=== PATIENT | female | born 1975 | race Caucasian/White ===

== ENCOUNTER 2020-01-28 12:03 | Emergency (ER) | payer OTHER, SELFPAY ==
--- NOTE | ~2020-01-28 | CT_ITS ---
EXAMINATION: CTA chest PE protocol DATE: 01/28/2020 15:56 CDT INDICATION: Chest pain TECHNIQUE: Computed tomographic angiography (CTA) of the chest was performed with 100 mL Omnipaque-35 0 intravenous contrast. The dose-length product was 303.25 mGy-cm. Maximum intensity projection 3D-re constructions of the aorta and other arteries were constructed by the technologist on a separate work station. Automated exposure control and iterative reconstruction technique were employed. COMPARISON: Chest x-ray dated 01/28/2020 FINDINGS: Study is technically adequate without evidence for pulmonary embolism. Size is normal. No s ignificant pleural or pericardial effusion. There is no thoracic lymphadenopathy. There is dependent atelectasis bilaterally. The upper abdomen is unremarkable. No focal airspace consolidation. No suspi cious pulmonary nodules or masses. There is an acute left fourth rib fracture there is a chronic left sixth rib fracture. IMPRESSION: 1. No evidence for pulmonary embolism. 2: Acute left fourth rib fracture. 3: Bibasilar dependent atelectasis. Reviewed, dictated and finalized at location A.
--- NOTE | ~2020-01-28 | XR_ITS ---
EXAMINATION: XR chest 2V 01/28/2020 12:48 INDICATION: Dyspnea and cough. PROCEDURE: PA and lateral views of the chest COMPARISON: 07/01/2014 FINDINGS: The lungs are clear. The cardiomediastinal silhouette is within normal limits. There are no pleural effusions. There is no pneumothorax suspected. IMPRESSION: 1: NO ACUTE CARDIOPULMONARY DISEASE. Reviewed, dictated and finalized at location A.
[2020-01-28 12:05] VITALS: BP 135/58; PULSE 125; RESP 30; TEMP 36.1; O2SAT 100
--- NOTE | 2020-01-28 12:10 | ECG_ITS ---
Measurements Intervals [place] Rate: 114 P: 23 DE: 138 QRS: 35 QRSD: 84 T: 9 QT: 312 QTc: 431 Interpretive Statements SINUS TACHYCARDIA BORDERLINE ST-T WAVE ABNORMALITY- ANT/INF LEADS BASELINE WANDER- V1, V3-V6 ABNORMAL ECG Electronically Signed On 01-28-2020 12:47:53 CDT by Alvaro Ortiz D.O.
[2020-01-28 12:57] LABS: Basophils Absolute Auto 0.1 K/mm3 (0.0-0.1); Basophils Percent Auto 0.4 % (0.2-1.2); Eosinophils Percent Auto 0.2 % (0-4.4); Hematocrit 40.9 % (37.0-47.0); Hemoglobin 13.4 g/dL (12.0-15.0); Immature Granulocyte Percent A 1.4 % (0-0.5); Lymphocytes Absolute Auto 4.19 K/mm3 (0.9-3.2); Lymphocytes Percent Auto 30.1 % (18.3-44.2); Mean Corpuscular HGB Conc 32.8 g/dl (32-36); Mean Corpuscular Hemoglobin 30.4 pg (26-34); Mean Corpuscular Volume 92.7 fl (80-100); Mean Platelet Volume 8.9 fl (7.4-10.4); Monocytes Absolute Auto 0.8 K/mm3 (0.1-0.6); Monocytes Percent Auto 5.8 % (2.6-8.5); Neutrophils Absolute Auto 8.7 K/mm3 (1.3-6.7); Neutrophils Percent Auto 62.1 % (45.5-73.1); Platelet Count Result 411 k/mm3 (150-375); Red Blood Count 4.41 M/mm3 (4.2-5.4); Red Cell Distribution Width 14.3 % (11.5-14.5); White Blood Count 13.9 K/mm3 (4.5-10.0)
[2020-01-28] MEDS: LORAZEPAM INJ 2 MG/ML VIAL 1 MG IV PUSH (13:10)
[2020-01-28 13:12] LABS: Blood Urea Nitrogen 11 mg/dL (7-17); Calcium 8.8 mg/dL (8.4-10.2); Carbon Dioxide 24 mmol/L (22-30); Chloride 105 mmol/L (98-107); Estimated CRCL calculation 72 ml/min; Estimated Glomerular Filt Rate > 60; Glucose 153 mg/dL (65-105); Potassium 2.7 mmol/L (3.4-5.0); Sodium 137 mmol/L (137-145)
--- NOTE | 2020-01-28 13:24 | ED.SOB ---
HPI - SOB/Dyspnea General Chief Complaint: Shortness of Breath/Dyspnea Stated Complaint: SOB, LEFT SIDE PAIN Time Seen by Provider: 01/28/20 12:26 Source: patient Mode of arrival: ambulatory Limitations: no limitations History of Present Illness HPI Narrative: Patient is a 44-year-old female who presents to emergency department for evaluation of nonproductive cough is been present for 1 week saw her primary care for it had a steroid shot in office and is currently on antibiotics and has been taking oral steroids and using an albuterol inhaler patient notes she continues to have anxiety and shortness of breath with some pain under the left breast that is been there for 1 week is constant and worse with breathing and coughing. Patient with history of tobacco abuse. Patient denies sick contacts. Patient on arrival notes feeling anxious and is hyperventilating Related Data Home Medications Medication Instructions Recorded Confirmed alprazolam 2 mg PO Q6-8H PRN 01/28/20 amitriptyline 25 mg PO DAILY 01/28/20 01/28/20 buspirone 7.5 mg PO DAILY 01/28/20 01/28/20 haloperidol 5 mg PO DAILY 01/28/20 01/28/20 Allergies Allergy/AdvReac Type Severity Reaction Status Date / Time ibuprofen Allergy Unknown Unverified 07/01/14 08:13 pineapple Allergy Unknown THROAT Unverified 07/01/14 08:12 SWELLING, HIVES Review of Systems Review of Systems: All systems reviewed & are unremarkable except as noted in HPI and below PMFSH Past Medical History Medical History (Updated 01/28/20 @ 16:50 by Gurjit Brooks PA-C) Anxiety Social History Social History (Updated 01/28/20 @ 13:25 by Gurjit Brooks PA-C) Smoking status: Current every day smoker Gender identity (if verbalized by the patient): Female Exam Narrative: Exam Narrative: GENERAL: Well-appearing, well-nourished, and in no acute distress. HEAD: Normocephalic, atraumatic. EYES: PERRLA and EOMI. ENT: Nares clear, no rhinorrhea or epistaxis. Mucous membranes moist. Oropharynx without tonsillar hypertrophy exudate or other lesions. Bilateral TMs pearly marx nonbulging NECK: Supple. No adenopathy or masses. CHEST: Clear to auscultation. No respiratory distress. No wheezes rales or rhonchi HEART: Regular rate and rhythm. No murmur heard. Normal peripheral pulses. ABDOMEN: Soft, nontender, nondistended EXTREMITIES: Normal range of motion. No edema. SKIN: Warm, dry, no rash. NEURO: No focal deficits. Alert and oriented x3. Cranial nerves II through XII grossly intact PSYCH: Normal mood and affect. Course Vital Signs Vital signs: Vital Signs Temperature 97.0 F L 01/28/20 12:05 Pulse Rate 125 H 01/28/20 12:05 Respiratory Rate 30 H 01/28/20 12:05 Blood Pressure 135/58 L 01/28/20 12:05 Pulse Oximetry 100 01/28/20 12:05 Temperature 97.0 F L 01/28/20 12:05 Pulse Rate 125 H 01/28/20 12:05 Respiratory Rate 30 H 01/28/20 12:05 Blood Pressure 135/58 L 01/28/20 12:05 Pulse Oximetry 100 01/28/20 12:05 MDM - SOB/Dyspnea MDM Narrative Medical decision making narrative: Patient in the room at this time with likely bronchitis-like symptoms afebrile nontoxic-appearing felt appropriate for outpatient reevaluation CTA showed left rib fracture likely the etiology of the patient's pain. Patient is afebrile nontoxic-appearing no distress with normalizing vital signs with a heart rate of 95 satting 100% on room air Lab Data Result diagrams: 01/28/20 12:50 01/28/20 12:50 Labs: Lab Results 01/28/20 01/28/20 Range/Units 12:50 12:50 WBC 13.9 H (4.5-10.0) K/mm3 RBC 4.41 (4.2-5.4) M/mm3 Hgb 13.4 (12.0-15.0) g/dL Hct 40.9 (37.0-47.0) % MCV 92.7 (80-100) fl MCH 30.4 (26-34) pg MCHC 32.8 (32-36) g/dl RDW 14.3 (11.5-14.5) % Plt Count 411 H (150-375) k/mm3 MPV 8.9 (7.4-10.4) fl Immature Gran % (Auto) 1.4 H (0-0.5) % Neut % (Auto) 62.1 (45.5-73.1) % Lymph % (Auto)
[2020-01-28 13:29] LABS: Alveolar/Arterial O2 Gradient 39.2 mmHg; Base Excess ABG -1.6 mEq/l (+/-2.0); Carboxyhemoglobin 1.9 % THb (0-2.0); Fractional Inspired Oxygen 21 %; Methemoglobin ABG 0.3 %THb (0-1.5); Oxygen Content ABG 17.9 %vol (16.0-22.0); Oxygen Saturation ABG 95.9 % (95.0-100.0); Oxyhemoglobin 93.3 % THb (90.0-100.0); PCO2 ABG 29.9 mmHg (35.0-45.0); PO2 ABG 74.7 mmHg (80.0-100.0); PO2 FiO2 Ratio Arterial Blood 3.56 %; Reduced Hemoglobin 4.5 %THb (0-5.0); Total Hemoglobin 13.6 g/dL (12.0-18.0); pH ABG 7.465 (7.350-7.450)
--- NOTE | 2020-01-28 13:35 | PC.NURSE ---
CALLED LAB TO ADD ON TROP BASELINE AND PHOS MG THEN TERESA THE LACTIC THAT WAS ORDERED AND SENT IT TO LAB
[2020-01-28 14:03] LABS: Prothrombin Time 12.4 Seconds (11.1-14.7)
[2020-01-28 14:04] LABS: Partial Thromboplastin Time 21.5 SECONDS (22.3-36.8)
[2020-01-28 14:04] LABS: Device ROOM AIR; Modified Allen's Test Pass; Site Drawn RIGHT RADIAL
[2020-01-28 14:08] LABS: Lactic Acid Reflex 1.9 mmol/L (0.7-2.1)
[2020-01-28 14:09] LABS: D Dimer 0.23 ug/mL (<0.48)
[2020-01-28 14:30] LABS: Magnesium 2.1 mg/dL (1.6-2.3); Phosphorus 2.8 mg/dL (2.5-4.5)
[2020-01-28 14:41] LABS: Troponin I < 0.012 ng/mL (0.000-0.034)
[2020-01-28] MEDS: POTASSIUM CHLORIDE 20 MEQ PACKET (FOR LIQUID) 40 MEQ PO (14:53)
[2020-01-28 16:27] VITALS: BP 138/72; PULSE 96; RESP 20
== END 2020-01-28 17:00 | disposition home or self-care (01) ==
PROVIDERS: Emergency Medicine Emergency Medical Services; Emergency Provider Emergency Medicine
DX: J40 Bronchitis, not specified as acute or chronic (principal); R00.0 Tachycardia, unspecified; F32.9 Major depressive disorder, single episode, unspecified; F17.210 Nicotine dependence, cigarettes, uncomplicated
CPT/HCPCS: 36415; 36600; 71046; 71275; 80048; 81025; 82375; 82805; 83050; 83605; 83735; 84100; 84484; 85025; 85380; 85610; 85730; 93005; 96365; 96375; 99284; A9270; J0131; J2060; Q9967

== ENCOUNTER 2022-07-23 09:12 | Emergency (ER) | payer OTHER, SELFPAY ==
[2022-07-23] VITALS (67 sets, daily range): BP systolic 135–170; BP diastolic 74–120; PULSE 88–132; RESP 10–20; TEMP 36.6; O2SAT 10–100
--- NOTE | ~2022-07-23 | XR_ITS ---
EXAMINATION: XR wrist RT 2V DATE: 07/23/2022 12:22 INDICATION: Postreduction right wrist fracture. TECHNIQUE: Posteroanterior, ulnar deviation, oblique, and lateral views of the right wrist were obtai pablo. COMPARISON: 07/23/2022 at 10:04 AM FINDINGS: Successful reduction to a reasonable approximation of anatomic alignment of a transverse extra articu lar fracture of the distal right radial metaphysis. The minimal displacement of the ulnar styloid fra cture line has also been reduced, now essentially nondisplaced. No other fractures identified. Joint spaces are normal. Fiberglas splinting material along the volar aspect of the right wrist and forearm . IMPRESSION: 1. Successful reduction to near-anatomic alignment and splinting of an extra articular fracture of th e distal right radius and fracture at the base of the ulnar styloid process. Reviewed, dictated and finalized at location A. E TESTER IMPRESSION: 1. Successful reduction to near-anatomic alignment and splinting of an extra ar ticular fracture of the distal right radius and fracture at the base of the uln ar styloid process.
--- NOTE | ~2022-07-23 | XR_ITS ---
EXAMINATION: XR chest 2V DATE: 07/23/2022 10:16 INDICATION: Lightheadedness. TECHNIQUE: frontal and lateral views of the chest were obtained. COMPARISON: Chest radiograph and CT dated 01/28/2020 FINDINGS: The lungs remain clear with no focal airspace opacities, pulmonary edema, pleural effusion or pneumot horax. The cardiomediastinal silhouette is normal. Visualized bones and soft tissues are unremarkable . IMPRESSION: 1. No acute cardiopulmonary disease. Reviewed, dictated and finalized at location A. NT SERVICES COORDINATOR
--- NOTE | ~2022-07-23 | XR_ITS ---
EXAMINATION: XR wrist RT min 3V DATE: 07/23/2022 10:17 INDICATION: Right wrist pain post fall down steps TECHNIQUE: Posteroanterior, oblique and lateral views of the right wrist were obtained. COMPARISON: none FINDINGS: Intra-articular fracture extending obliquely across the distal right radial metaphysis with 3 mm ante rior displacement and significant volar angulation resulting in 50 to 5 degrees volar tilt of the dis marlo articular surface. 2 mm anterior displacement of an oblique fracture at the base of the ulnar sty loid process. No other fractures identified. Normal alignment and joint spaces in the visualized port ion of the right hand. Soft tissue swelling about the distal forearm. IMPRESSION: 1. Volar displacement and significant volar angulation of an extra-articular fracture of the distal r ight radial metaphysis. 2. Mild forward displacement of a fracture across the base of the ulnar styloid process. Reviewed, dictated and finalized at location A. ARCH GROUP DIRECTOR IMPRESSION: 1. Volar displacement and significant volar angulation of an extra-articular fr acture of the distal right radial metaphysis. 2. Mild forward displacement of a fracture across the base of the ulnar styloid process.
--- NOTE | 2022-07-23 09:34 | ECG_ITS ---
Measurements Intervals [place] Rate: 108 P: 34 HI: 151 QRS: 49 QRSD: 92 T: -4 QT: 363 QTc: 488 Interpretive Statements SINUS TACHYCARDIA NONSPECIFIC ST & T-WAVE ABNORMALITY- ANTEROLAT/INF LEADS BASELINE ARTIFACT- I, II, III, AVR, AVL, AVF, V1 ABNORMAL ECG COMPARED TO ECG 01/28/2020 12:18:24 NO SIGNIFICANT CHANGES Electronically Signed On 07-23-2022 10:48:42 RN ED by Alvaro Ortiz D.O.
--- NOTE | 2022-07-23 09:43 | ED.UPPEXIN ---
HPI - Extremity Injury (Upper) General Chief Complaint: Extremity Injury, Upper <Alena Mtz PA-C - Last Filed: 07/23/22 13:52> Stated Complaint: right arm injury <CAMI Moore Last Filed: 07/23/22 13:52> Time Seen by Provider: 07/23/22 09:19 <CAMI Moore Last Filed: 07/23/22 13:52> Source: patient <CAMI Moore Last Filed: 07/23/22 13:52> Mode of arrival: ambulatory <CAMI Moore Last Filed: 07/23/22 13:52> Limitations: no limitations <CAMI Moore Last Filed: 07/23/22 13:52> History of Present Illness HPI narrative: This is a 47 year old female that presents to the ER for right wrist pain after a fall today. Reports she has spells where she gets lightheaded. Reports she was walking down the stairs this morning and had one and fell down the last couple of steps. Reports catching herself with her right wrist. She did not hit her head or lose consciousness. Reports since she has had right wrist pain and swelling. This happened a couple hours prior to arrival. Reports she feels like her heart is racing now and she is anxious to be in the ER. Denies visual changes, chest pain, shortness of breath, vomiting, numbness or weakness. <CAMI Moore Last Filed: 07/23/22 13:52> Related Data Home Medications: Home Medications Medication Instructions Recorded Confirmed alprazolam 2 mg tablet 2 mg PO Q6-8H PRN Anxiety 01/28/20 amitriptyline 25 mg tablet 25 mg PO DAILY 01/28/20 01/28/20 buspirone 7.5 mg tablet 7.5 mg PO DAILY 01/28/20 01/28/20 haloperidol 5 mg tablet 5 mg PO DAILY 01/28/20 01/28/20 <CAMI Moore Last Filed: 07/23/22 13:52> Allergies/Adverse Reactions: Allergies Allergy/AdvReac Type Severity Reaction Status Date / Time ibuprofen Allergy Unknown Other Verified 07/23/22 12:13 pineapple Allergy Unknown THROAT Verified 07/23/22 12:13 SWELLING, HIVES <Alena Mtz PA-C - Last Filed: 07/23/22 13:52> Review of Systems Review of Systems: CONSTITUTIONAL: Denies fever EYES: Denies visual changes CARDIOVASCULAR: Denies chest pain RESPIRATORY: Denies dyspnea. GASTROINTESTINAL: Denies abdominal pain, vomiting MUSCULOSKELETAL: Reports joint pain and myalgia. Denies back pain NEUROLOGIC: Denies headache, numbness, or weakness. PSYCHIATRIC: Reports anxiety <Alena Mtz PA-C - Last Filed: 07/23/22 13:52> All systems reviewed & are unremarkable except as noted in HPI and below <Alena Mtz PA-C - Last Filed: 07/23/22 13:52> PMFSH Past Medical History Medical History: Medical History (Updated 07/23/22 @ 13:50 by Alena Mtz PA-C) Anxiety History of depression <Alena Mtz PA-C - Last Filed: 07/23/22 13:52> Social History Social History: Social History (Updated 01/28/20 @ 13:25 by Gurjit BrooksCAMI) Smoking status: Current every day smoker Gender identity (if verbalized by the patient): Female <Alena Mtz PA-C - Last Filed: 07/23/22 13:52> Exam Narrative: GENERAL: Well-appearing, well-nourished, anxious HEAD: Normocephalic, atraumatic. EYES: PERRLA and EOMI. ENT: Nares clear, no rhinorrhea or epistaxis. Mucous membranes moist. Oropharynx without tonsillar hypertrophy exudate or other lesions. Bilateral TMs pearly marx non-bulging NECK: Supple. No adenopathy or masses. No midline spinal tenderness CHEST: Clear to auscultation. No respiratory distress. No wheezes rales or rhonchi HEART: Regular rate and rhythm. No murmur heard. Normal peripheral pulses. ABDOMEN: Soft, normal active bowel sounds. BACK: No midline thoracic or lumbar spine tenderness EXTREMITIES: Normal range of motion, except decreased active ROM in the right wrist with swelling. Normal radial pulse. Normal sensation SKIN: Warm, dry, no rash. NEURO: No focal deficits. Alert and oriented x3. Cranial nerves II through XII grossly intact PSYCH: Anxious <Alena
[2022-07-23 09:59] LABS: Basophils Absolute Auto 0.1 K/mm3 (0.0-0.1); Basophils Percent Auto 0.5 % (0.2-1.2); Eosinophils Percent Auto 0.1 % (0-4.4); Hematocrit 42.9 % (37.0-47.0); Immature Granulocyte Absolute 0.15 K/mm3 (0.00-0.031); Lymphocytes Absolute Auto 1.59 K/mm3 (0.9-3.2); Lymphocytes Percent Auto 10.6 % (18.3-44.2); Mean Corpuscular HGB Conc 32.6 g/dl (32-36); Mean Corpuscular Hemoglobin 30.4 pg (26-34); Mean Corpuscular Volume 93.3 fl (80-100); Mean Platelet Volume 8.8 fl (7.4-10.4); Monocytes Percent Auto 6.5 % (2.6-8.5); Neutrophils Absolute Auto 12.2 K/mm3 (1.3-6.7); Neutrophils Percent Auto 81.3 % (45.5-73.1); Platelet Count Result 401 k/mm3 (150-375); Red Cell Distribution Width 15.9 % (11.5-14.5)
[2022-07-23] MEDS: MORPHINE SULFATE (*CRX) 2 MG/ML INJ IV PUSH (10:13)
[2022-07-23] MEDS: ONDANSETRON INJ 4 MG/2 ML VIAL IV PUSH (10:13)
[2022-07-23] MEDS: SODIUM CHLORIDE 0.9% IV 1,000 ML 999 ML IV CONT (10:13)
[2022-07-23 10:23] LABS: Albumin Level 4.7 g/dL (3.5-5.1); Alkaline Phosphatase 107 U/L (38-126); Anion Gap 15 mmol/L (8-16); Aspartate Amino Transferase 22 U/L (14-36); Bilirubin,Total 0.4 mg/dL (0.2-1.3); Blood Urea Nitrogen 5 mg/dL (7-17); Calcium 9.1 mg/dL (8.4-10.2); Carbon Dioxide 22 mmol/L (22-30); Chloride 101 mmol/L (98-107); Estimated CRCL calculation 75 ml/min; Estimated Glomerular Filt Rate > 60; Glucose 116 mg/dL (65-110); Potassium 3.9 mmol/L (3.4-5.0); Sodium 138 mmol/L (137-145)
[2022-07-23 10:31] LABS: Alanine Aminotransferase 28 U/L (6-35)
[2022-07-23] MEDS: PROPOFOL IV EMULSION 200 MG/20 ML VIAL 180 MG IV PUSH (12:07)
== END 2022-07-23 14:14 | disposition home or self-care (01) ==
PROVIDERS: Physician Assistant; Emergency Provider Emergency Medicine; PCP Family Medicine
DX: S52.551A Other extraarticular fracture of lower end of right radius, initial encounter for closed fracture (principal); S52.611A Displaced fracture of right ulna styloid process, initial encounter for closed fracture; R42 Dizziness and giddiness; F41.9 Anxiety disorder, unspecified; F32.A Depression, unspecified; R00.0 Tachycardia, unspecified; R94.31 Abnormal electrocardiogram [ECG] [EKG]; W10.9XXA Fall (on) (from) unspecified stairs and steps, initial encounter
CPT/HCPCS: 25605; 36415; 71046; 73100; 73110; 80053; 85025; 93005; 96361; 96374; 96375; 99285; J0131; J2270; J2405; J2704; J7030

== ENCOUNTER 2022-07-25 19:59 | Emergency (ER) | payer OTHER, SELFPAY ==
[2022-07-25] VITALS (10 sets, daily range): BP systolic 129–136; BP diastolic 72–85; PULSE 94–115; RESP 13–18; TEMP 36.8; O2SAT 95–99
--- NOTE | ~2022-07-25 | CT_ITS ---
EXAMINATION: CT brain wo con DATE: 07/25/2022 20:28 INDICATION: new onset seizure . TECHNIQUE: Computed tomography (CT) of the head was performed without intravenous contrast. The mA wa s adjusted according to patient size. Iterative reconstruction technique was employed. The dose-lengt h product was 605.33 mGy-cm. COMPARISON: None FINDINGS: No acute intracranial hemorrhage or extra-axial fluid collection. No hydrocephalus, mass, or herniation. No acute ischemic infarct. Unremarkable dural venous sinus attenuation. No acute osseous abnormality. The aerated spaces are clear. IMPRESSION: No acute intracranial process. Reviewed, dictated and finalized at location K. SALES CONSULTANT
--- NOTE | 2022-07-25 20:57 | ED.SEIZURE ---
HPI - Seizure General Chief Complaint: Seizure Stated Complaint: SEIZURE Time Seen by Provider: 07/25/22 20:06 History of Present Illness HPI Narrative: 47-year-old female with history only of anxiety and depression presents after a witnessed episode of seizure-like activity at home, per at bedside he heard a thump, went upstairs and saw the patient jerkiness, eyes rolling back, not responsive to him, seeming to have food still in her mouth, he states that the entire episode lasted for several minutes and he turned on her side, and afterwards when she stopped shaking she was still unresponsive for several minutes until EMS showed up and then she became more alert and answering questions. No history of seizures in the past, no recent alcohol or other drug ingestion, mother does have a history of seizures but only after having been diagnosed with a brain tumor, only recent change she can think of is she has been sleeping much less than usual. No focal numbness or weakness right now, she just feels quite tired. Related Data Home Medications Medication Instructions Recorded Confirmed alprazolam 2 mg tablet 2 mg PO Q6-8H PRN Anxiety 01/28/20 amitriptyline 25 mg tablet 25 mg PO DAILY 01/28/20 01/28/20 buspirone 7.5 mg tablet 7.5 mg PO DAILY 01/28/20 01/28/20 haloperidol 5 mg tablet 5 mg PO DAILY 01/28/20 01/28/20 Allergies Allergy/AdvReac Type Severity Reaction Status Date / Time ibuprofen Allergy Unknown Other Verified 07/23/22 12:13 pineapple Allergy Unknown THROAT Verified 07/23/22 12:13 SWELLING, HIVES Review of Systems Review of Systems: CONST: No fever. HEENT: No sore throat C/V: No chest pain RESP: No cough or difficulty breathing GI: No nausea or vomiting : No dysuria. M/S: No joint pain. SKIN: No rash. NEURO: Seizure like activity PSYCH: [No depression] PMFSH Past Medical History Medical History Anxiety History of depression Social History Social History Smoking status: Current every day smoker Gender identity (if verbalized by the patient): Female Exam Narrative: EXAMINATION OF ORGAN SYSTEMS/BODY AREAS: Constitutional: Vital signs per nursing GENERAL: Appears tired but in no distress HEAD: Normal with no signs of head trauma. EYES: EOMI, conjunctiva normal ENT: Hearing grossly intact LUNGS: Nonlabored breathing. HEART: Slightly tachycardic ABD: [Soft], [nontender to palpation] EXT: Normal range of motion SKIN: [No rashes or lesions.] NEURO: [Alert and oriented x 3. No gross focal sensory or strength deficits.] PSYCH: Tired affect Course Vital Signs Vital signs: Vital Signs Temperature 98.2 F 07/25/22 19:57 Pulse Rate 115 H 07/25/22 19:57 Respiratory Rate 18 07/25/22 19:57 Blood Pressure 130/80 07/25/22 19:57 Pulse Oximetry 98 07/25/22 19:57 Temperature 98.2 F 07/25/22 19:57 Pulse Rate 100 07/25/22 22:46 Respiratory Rate 16 07/25/22 22:46 Blood Pressure 135/83 07/25/22 22:46 Pulse Oximetry 98 07/25/22 22:46 Oxygen Delivery Room Air 07/25/22 20:05 MDM - Seizure MDM Narrative Medical decision making narrative: 47-year-old presenting with new onset seizure like activity occurring today. Seizure precautions are initiated. CT head unremarkable; labs showing WBC and elevated lactate c/w seizure. Discussed with neurologist who recommended outpatient followup with MRI and EEG, no driving for 6 months, and likely not starting antiepileptic at this time. Patient remained stable in the emergency department for a period of observation without any recurrence of the symptoms and was discharged in stable condition with return precautions and outpatient follow-up. Procedures: Pulse oximetry interpretation - not hypoxic. Review of medical records. Lab Data Result diagrams: 07/25/22 20:48 07/25/22 20:48 Labs:
[2022-07-25 21:11] LABS: Basophils Absolute Auto 0.1 K/mm3 (0.0-0.1); Basophils Percent Auto 0.3 % (0.2-1.2); Eosinophils Percent Auto 0.1 % (0-4.4); Hematocrit 35.9 % (37.0-47.0); Hemoglobin 12.1 g/dL (12.0-15.0); Immature Granulocyte Absolute 0.32 K/mm3 (0.00-0.031); Immature Granulocyte Percent A 1.8 % (0-0.5); Lymphocytes Percent Auto 9.6 % (18.3-44.2); Mean Corpuscular HGB Conc 33.7 g/dl (32-36); Mean Corpuscular Hemoglobin 30.4 pg (26-34); Mean Corpuscular Volume 90.2 fl (80-100); Mean Platelet Volume 8.7 fl (7.4-10.4); Monocytes Percent Auto 5.4 % (2.6-8.5); Neutrophils Absolute Auto 14.7 K/mm3 (1.3-6.7); Neutrophils Percent Auto 82.8 % (45.5-73.1); Platelet Count Result 339 k/mm3 (150-375); Red Blood Count 3.98 M/mm3 (4.2-5.4); Red Cell Distribution Width 15.8 % (11.5-14.5); White Blood Count 17.7 K/mm3 (4.5-10.0)
[2022-07-25 21:27] LABS: Anion Gap 12 mmol/L (8-16); Blood Urea Nitrogen 8 mg/dL (7-17); Calcium 8.5 mg/dL (8.4-10.2); Carbon Dioxide 23 mmol/L (22-30); Chloride 100 mmol/L (98-107); Estimated CRCL calculation 84 ml/min; Estimated Glomerular Filt Rate > 60; Glucose 123 mg/dL (65-110); Lactic Acid Reflex 3.5 mmol/L (0.7-2.0); Potassium 3.5 mmol/L (3.4-5.0); Sodium 135 mmol/L (137-145)
[2022-07-25] MEDS: HYDROcodone/acetaminophen (*CRX) 5-325 MG TABLET 1 TAB PO (22:17)
[2022-07-26 00:09] LABS: Reflex Lactic Acid Yes or No Add Lactic
== END 2022-07-25 23:12 | disposition home or self-care (01) ==
PROVIDERS: Emergency Provider Emergency Medicine; PCP Family Medicine
DX: R56.9 Unspecified convulsions (principal); F41.9 Anxiety disorder, unspecified; F32.A Depression, unspecified; F17.200 Nicotine dependence, unspecified, uncomplicated
CPT/HCPCS: 36415; 70450; 80048; 83605; 85025; 99284; A9270

== ENCOUNTER 2022-07-26 06:31 | Observation (INO) | payer OTHER, SELFPAY ==
[2022-07-26] VITALS (20 sets, daily range): BP systolic 127–155; BP diastolic 86–100; PULSE 90–130; RESP 11–22; TEMP 36.2–36.6; O2SAT 94–99; BMI 36.7
--- NOTE | ~2022-07-26 | XR_ITS ---
EXAMINATION: XR chest 1V portable DATE: 07/26/2022 15:19 INDICATION: Chest pain. TECHNIQUE: A single frontal view of the chest was obtained. COMPARISON: Chest 2 views 07/23/2022, chest CT 01/28/2020 FINDINGS: There is no pneumonia, pleural effusion, or pneumothorax. The heart size is normal. IMPRESSION: 1. No acute cardiopulmonary disease. Reviewed, dictated and finalized at location A. [facility]
--- NOTE | ~2022-07-26 | MR_ITS ---
EXAMINATION: MR brain/brain stem wo con DATE: 07/26/2022 13:23 INDICATION: New onset seizure. TECHNIQUE: Magnetic resonance imaging (MRI) of the brain and brainstem was performed without intraven ous contrast. COMPARISON: Head CT 07/25/2022 FINDINGS: There is no intracranial hemorrhage, acute infarction, or abnormal intracranial mass lesion . The hippocampi are normal and symmetric. The ventricles are normal in size. The orbits are normal. The paranasal sinuses are clear. The mastoid air cells are normal. IMPRESSION: 1. Normal brain. Reviewed, dictated and finalized at location A. [facility] TURNER IMPRESSION: 1. Normal brain.
--- NOTE | 2022-07-26 06:42 | ED.SEIZURE ---
HPI - Seizure General Chief Complaint: Seizure Stated Complaint: seizure Time Seen by Provider: 07/26/22 06:38 History of Present Illness HPI Narrative: Patient seen here last night for new onset seizure presents with another episode earlier this morning. Per family at bedside, he heard a thump and ran upstairs and saw the patient had fallen in the bathroom, and was having rhythmic jerking of her arms and legs like before, and seemed to be having heavy breathing. The episode ended after several minutes and patient seemed slightly tired and confused afterwards but was responsive and answering questions. She denies any symptoms currently. No headache Related Data Home Medications Medication Instructions Recorded Confirmed alprazolam 2 mg tablet mg 07/26/22 buspirone 15 mg tablet mg 07/26/22 fluoxetine 20 mg capsule mg 07/26/22 quetiapine 50 mg tablet mg 07/26/22 Allergies Allergy/AdvReac Type Severity Reaction Status Date / Time ibuprofen Allergy Unknown Other Verified 07/26/22 06:49 pineapple Allergy Unknown THROAT Verified 07/26/22 06:49 SWELLING, HIVES Review of Systems Review of Systems: CONST: No fever. HEENT: No sore throat C/V: No chest pain RESP: No cough GI: No nausea vomiting : No dysuria. M/S: No joint pain. SKIN: No rash. NEURO: Seizure PSYCH: [No depression] [facility] Past Medical History Medical History Anxiety History of depression Social History Social History Smoking status: Current every day smoker Gender identity (if verbalized by the patient): Female Exam Narrative: EXAMINATION OF ORGAN SYSTEMS/BODY AREAS: Constitutional: Vital signs per nursing GENERAL: Appears sleepyt HEAD: No head tenderness EYES: EOMI, conjunctiva normal ENT: Hearing grossly intact LUNGS: Nonlabored breathing. HEART: [Regular rate and rhythm] ABD: [Soft], [nontender to palpation] EXT: Normal range of motion SKIN: [No rashes or lesions.] NEURO: [Tired but alert and oriented x 3. No gross focal sensory or strength deficits.] PSYCH: Normal affect Course Vital Signs Vital signs: Vital Signs Temperature 97.1 F L 07/26/22 06:26 Pulse Rate 130 H 07/26/22 06:26 Respiratory Rate 16 07/26/22 06:26 Blood Pressure 141/94 H 07/26/22 06:26 Pulse Oximetry 99 07/26/22 06:26 Oxygen Delivery Room Air 07/26/22 06:26 Temperature 97.1 F L 07/26/22 06:26 Pulse Rate 130 H 07/26/22 06:26 Respiratory Rate 16 07/26/22 06:26 Blood Pressure 141/94 H 07/26/22 06:26 Pulse Oximetry 99 07/26/22 06:26 Oxygen Delivery Room Air 07/26/22 06:26 MDM - Seizure MDM Narrative Medical decision making narrative: 47yoF presenting with second seizure in 24 hours, she has been seen for similar symptoms, never had seizures before this. Case discussed with the neurologist, who is agreeable to having the patient admitted, I recommended starting the patient on 4 g of Keppra load, then 1 g twice a day. She is discussed with the hospitalist who agrees to admission, discussed plan with family and patient who are agreeable to this. Procedures: Pulse oximetry interpretation - not hypoxic. Review of medical records. Lab Data Result diagrams: 07/26/22 06:52 07/26/22 06:52 Labs: Lab Results 07/26/22 07/26/22 07/26/22 Range/Units 06:52 06:52 06:52 WBC 15.5 H (4.5-10.0) K/mm3 RBC 4.08 L (4.2-5.4) M/mm3 Hgb 12.7 (12.0-15.0) g/dL Hct 38.1 (37.0-47.0) % MCV 93.4 (80-100) fl MCH 31.1 (26-34) pg MCHC 33.3 (32-36) g/dl RDW 15.9 H (11.5-14.5) % Plt Count 358 (150-375) k/mm3 MPV 9.0 (7.4-10.4) fl Immature Gran % (Auto) 1.3 H (0-0.5) % Neut % (Auto) 83.6 H (45.5-73.1) % Lymph % (Auto) 9.6 L (18.3-44.2) % [place] % (Auto) 5.0 (2.6-8.5) % Eos % (Auto) 0.1 (0-4.4) % Baso % (Auto) 0.4 (0.
[2022-07-26 07:00] LABS: Basophils Absolute Auto 0.1 K/mm3 (0.0-0.1); Basophils Percent Auto 0.4 % (0.2-1.2); Eosinophils Percent Auto 0.1 % (0-4.4); Hematocrit 38.1 % (37.0-47.0); Hemoglobin 12.7 g/dL (12.0-15.0); Immature Granulocyte Percent A 1.3 % (0-0.5); Lymphocytes Absolute Auto 1.48 K/mm3 (0.9-3.2); Lymphocytes Percent Auto 9.6 % (18.3-44.2); Mean Corpuscular HGB Conc 33.3 g/dl (32-36); Mean Corpuscular Hemoglobin 31.1 pg (26-34); Mean Corpuscular Volume 93.4 fl (80-100); Monocytes Absolute Auto 0.8 K/mm3 (0.1-0.6); Neutrophils Percent Auto 83.6 % (45.5-73.1); Platelet Count Result 358 k/mm3 (150-375); Red Blood Count 4.08 M/mm3 (4.2-5.4); Red Cell Distribution Width 15.9 % (11.5-14.5); White Blood Count 15.5 K/mm3 (4.5-10.0)
[2022-07-26] MEDS: LACTATED RINGERS 1,000 ML 999 ML IV CONT (07:05)
[2022-07-26 07:10] LABS: Anion Gap 12 mmol/L (8-16); Blood Urea Nitrogen 7 mg/dL (7-17); Calcium 8.7 mg/dL (8.4-10.2); Carbon Dioxide 21 mmol/L (22-30); Chloride 103 mmol/L (98-107); Estimated CRCL calculation 76 ml/min; Estimated Glomerular Filt Rate > 60; Glucose 137 mg/dL (65-110); Potassium 3.7 mmol/L (3.4-5.0); Sodium 136 mmol/L (137-145)
[2022-07-26 07:15] LABS: Lactic Acid Reflex 5.7 mmol/L (0.7-2.0)
[2022-07-26 07:36] LABS: Influenza A QL RT-PCR Negative (Negative); Influenza B QL RT-PCR Negative (Negative); RSV RNA, RT-PCR Negative (Negative); SARS-CoV-2 RNA PCR Negative
--- NOTE | 2022-07-26 07:56 | ECG_ITS ---
Measurements Intervals [place] Rate: 96 P: 31 RI: 159 QRS: 42 QRSD: 92 T: 12 QT: 351 QTc: 444 Interpretive Statements SINUS RHYTHM WITH SINUS ARRHYTHMIA NONSPECIFIC T-WAVE ABNORMALITY- INFERIOR LEADS BORDERLINE ECG COMPARED TO ECG 07/23/2022 09:45:45 SINUS RHYTHM NOW PRESENT SINUS ARRHYTHMIA NOW PRESENT Electronically Signed On 07-26-2022 13:55:46 FORDER OPERATOR by Alvaro Ortiz D.O.
[2022-07-26] MEDS: levETIRAcetam IV 4,000 MG in DEXTROSE 5% 100 ML 460 MG IVPB (07:58)
--- NOTE | 2022-07-26 08:32 | WPDNEURCNPN ---
Assessment and Plan Assessment and plan (1) New onset seizure: Code(s): R56.9 - Unspecified convulsions Status: Acute Plan Ms. Marquez is a 47 year old female with a history of anxiety and depression presenting with several seizures, that are seemingly unprovoked. Will need to get more detailed imaging to rule out secondary cause. Otherwise likely idiopathic epilepsy. - Will obtain MRI brain w/o contrast and routine EEG - Continue Keppra 1000mg BID - Discussed seizure precautions and no driving until 6 month seizure free - Will need outpatient follow-up in Neurology clinic in about 3 months Consult date: 07/26/22 Time Seen: 08:32 Reason for consult: Seizure HPI: Sherine Marquez is a 47 year old female wth a history of anxiety and depression presenting with new onset seizures. Patient first presented on 07/23 after sustaining a fall down the stairs. Prior to falling she had a spell of lightheadedness. She fell but did not lose consciousness or hit her head. She ended up fracturing her right wrist. She was treated and discharged. On 07/25, patient had a witnessed seizure -- heard a thump and found her with full body jerking, eyes rolled back, unresponsive, lasting several minutes. She was post-ictal afterwards but eventually came back to baseline. She was taken to [place] ED where she had a CT head which was negative. Given first time seizure she was recommended to follow-up as outpatient with EEG and MRI. However this morning patient had another witnessed seizure -- patient was in the bathroom when she fell and had rhythmic jerking of all extremities with labored breathing, lasting a few minutes, and then post-ictal. She was again taken to [place] ED where she received a loading dose of Keppra 4g and started on maintenance Keppra 1000mg BID. Patient has no prior history of seizure. No present signs of illness. UDS has not been done. There is a family history of seizures in mother, but provoked by brain tumor. Patient reports feeling tired and weak this morning. Per , she has had panic attacks in the past that are described as bilateral upper extremity shaking, but she is always alert and able to communicate during them. He emphasized that the panic attacks are very different than the seizures he observed. Patient denies any recent illness or substance use. Review of Systems Constitutional: Constitutional: Reports weakness Eyes: Eyes: Reports no additional eye complaints ENT: Reports system reviewed and no additional complaints, except as documented Cardiovascular: Cardiovascular: Reports chest pain Respiratory: Respiratory: Reports dyspnea Gastrointestinal: Gastrointestinal: Reports no additional gastrointestinal complaints Genitourinary: Genitourinary: Reports no additional female genitourinary complaints Musculoskeletal: Musculoskeletal: Reports back pain Integumentary/Breasts: Skin/Breast: Reports system reviewed and no additional complaints, except as docu Neurologic: Reports as per HPI Psychiatric: Psychiatric: Reports anxiety and Reports depression [facility] Past Medical History Medical History Anxiety History of depression Family History Family History (Updated 07/26/22 @ 10:08 by Nathalia Crowley LPN) Mother Lung cancer Father FH: kidney cancer Social History Social History Smoking packs per day: 0.5 Smoking cigarettes per day: 10.0 Years smoked: 30 Smoking pack-years: 15.00 Smoking status: Current every day smoker Tobacco type: cigarettes Alcohol intake: never Substance use: never Substance use type: does not use Lack of Transportation: No Lack of Food: Never True Current Housing: I Have Housing Concerned About Future Housing: No Difficulty Paying Gas/Electric Bills: No Difficulty Paying for Meds: No Currently Unemployed: No Education:
--- NOTE | 2022-07-26 11:04 | PM.IMHP ---
H&P: HPI History of Present Illness Date/Time: 07/26/22 11:04 Chief Complaint: seizure Narrative: the patient is a 47-year-old female with past medical history of anxiety and depression presents with seizure like activity. She presented last night with similar episode where the family heard a thump with the fall and when her went there see was having rhythmic jerking of her arms and legs with clenching of her teeth and had a stare look. Does episode lasted about few minutes and she seemed tired and confused after that. She does not have history of seizure in the past. She was sent back home after her CT head was done which came back normal. She had another episode again this morning similar in character this time she had tongue bite. She was brought to the ED and is admitted for further evaluation. Lactic acid was elevated with these episodes. She denies any recent fever chills no headaches or neck pain. Review of Systems Review of Systems: - CONSTITUTIONAL: Denies weight loss, fever and chills. - HEENT: Denies changes in vision and hearing - RESPIRATORY: Denies SOB and cough. - CV: Denies palpitations and Reports some CP. - GI: Denies abdominal pain, nausea, vomiting and diarrhea. - : Denies dysuria and urinary frequency. - MSK: Denies myalgia and joint pain. - SKIN: Denies rash and pruritus. - NEUROLOGICAL: Denies headache and syncope. - PSYCHIATRIC: Denies recent changes in mood. Denies anxiety and depression. [facility] Past Medical History Medical History (Updated 07/26/22 @ 14:24 by Yusuf Patterson MD) Anxiety History of depression Family History Family History (Updated 07/26/22 @ 10:08 by Nathalia Crowley LPN) Mother Lung cancer Father FH: kidney cancer Social History Social History Smoking packs per day: 0.5 Smoking cigarettes per day: 10.0 Years smoked: 30 Smoking pack-years: 15.00 Smoking status: Current every day smoker Tobacco type: cigarettes Alcohol intake: never Substance use: never Substance use type: does not use Lack of Transportation: No Lack of Food: Never True Current Housing: I Have Housing Concerned About Future Housing: No Difficulty Paying Gas/Electric Bills: No Difficulty Paying for Meds: No Currently Unemployed: No Education: Grade School Difficulty w/ Childcare or Family Care: No Gender identity (if verbalized by the patient): Female Spiritual care concerns: No Meds Home Medications and Allergies Home Medications Medication Instructions Recorded Confirmed Type hydrocodone 5 mg-acetaminophen 325 1 tablet PO Q6H PRN pain #14 tabs 07/23/22 07/26/22 Rx mg tablet alprazolam 2 mg tablet 2 mg PO TID 07/26/22 07/26/22 History budesonide-formoterol HFA 80 2 puff inhalation BID 07/26/22 07/26/22 History mcg-4.5 mcg/actuation aerosol inhaler buspirone 15 mg tablet 15 mg PO DAILY 07/26/22 07/26/22 History fluoxetine 20 mg capsule 40 mg PO DAILY 07/26/22 07/26/22 History quetiapine 50 mg tablet 25 mg PO BID 07/26/22 07/26/22 History quetiapine 50 mg tablet 100 mg PO HS 07/26/22 07/26/22 History Allergies Allergy/AdvReac Type Severity Reaction Status Date / Time ibuprofen Allergy Unknown Other Verified 07/26/22 10:12 pineapple Allergy Unknown THROAT Verified 07/26/22 10:12 SWELLING, HIVES ketorolac [From Toradol] Allergy Rash Verified 07/26/22 10:23 Vital Signs Vital Signs - 24 hr 07/26/22 06:26 07/26/22 07:13 07/26/22 07:14 Temperature 97.1 F L Pulse Rate 130 H 108 H Respiratory Rate 16 17 16 Blood Pressure 141/94 H Pulse Oximetry 99 99 99 Oxygen Delivery Room Air 07/26/22 07:15 07/26/22 07:16 07/26/22 07:30 Temperature Pulse Rate 106 H 100 Respiratory Rate 17 15 14 Blood Pressure 143/86 H Pulse Oximetry 98 98 99 Oxygen Delivery 07/26/22 07:31 07/26/22 07:45 07/26/22 07:46 Temperature
[2022-07-26] MEDS: HYDROcodone/acetaminophen (*CRX) 5-325 MG TABLET 1 TAB PO (15:04)
[2022-07-26 15:31] LABS: Lactic Acid Reflex 0.9 mmol/L (0.7-2.0)
[2022-07-26 16:21] LABS: Appearance Urine Cloudy (Clear); Bilirubin Urine 1+ (Negative); Blood Urine 1+ (Negative); Color Urine Yellow (Yellow); Glucose Urine UA Negative (Negative); Ketones Urine 4+ mg/dL (Negative); Leukocyte Esterase Ur Negative LEU/UL (NEGATIVE); Nitrate Urine Negative (Negative); Protein Urine 2+ mg/dL (Negative); Specific Grav Ur 1.025 (1.001-1.035); Urobilinogen Urine 0.2 mg/dL (<2.0)
[2022-07-26 16:28] LABS: Amorphous Sediment Urine Few; Bacteria Urine Trace /hpf; Mucus Urine Rare /lpf; RBC Urine 0-2 /hpf (0-2); Squamous Epithelial Cell Urine Few /hpf (Few)
[2022-07-26 16:33] LABS: Barbiturate Screen Urine Negative (Negative); Benzodiazepines Screen Urine Negative (Negative)
[2022-07-26 16:36] LABS: Cocaine Screen Urine Negative (Negative); Methadone Screen Urine Negative (Negative); Opiate Screen Urine Positive (Negative); Phencyclidine Screen Urine Negative (Negative)
[2022-07-26 16:41] LABS: Add Urine Microscopic? YES
[2022-07-26 16:45] LABS: Amphetamine Screen Urine Negative (Negative); Cannabinoid Screen Urine Negative (Negative)
[2022-07-26] MEDS: QUEtiapine FUMARATE 25 MG TABLET PO (17:07)
[2022-07-26] MEDS: ALPRAZolam (*CRX) 0.5 MG TABLET 2 MG PO (17:08)
[2022-07-26] MEDS: levETIRAcetam 1000MG/NACL100ML 1,000 MG/100 ML BAG 400 MG IVPB (21:02)
[2022-07-26] MEDS: QUEtiapine FUMARATE 100 MG TABLET PO (21:03)
[2022-07-26 23:47] LABS: Troponin I < 0.012 ng/mL (0.000-0.034)
[2022-07-27] VITALS (12 sets, daily range): BP systolic 145–150; BP diastolic 78–110; PULSE 104–140; RESP 22–26; TEMP 36.6–36.7; O2SAT 94–96
[2022-07-27 07:32] LABS: Alanine Aminotransferase 18 U/L (6-35); Albumin Level 3.9 g/dL (3.5-5.1); Alkaline Phosphatase 81 U/L (38-126); Anion Gap 10 mmol/L (8-16); Aspartate Amino Transferase 28 U/L (14-36); Bilirubin,Total 0.7 mg/dL (0.2-1.3); Blood Urea Nitrogen 7 mg/dL (7-17); Calcium 8.3 mg/dL (8.4-10.2); Carbon Dioxide 21 mmol/L (22-30); Chloride 104 mmol/L (98-107); Estimated CRCL calculation 99 ml/min; Estimated Glomerular Filt Rate > 60; Glucose 91 mg/dL (65-110); Magnesium 2.3 mg/dL (1.6-2.3); Potassium 3.4 mmol/L (3.4-5.0); Sodium 135 mmol/L (137-145)
--- NOTE | 2022-07-27 08:11 | WPDNEUROLOGY ---
Neurology EEG Report General Information Date of Study: 07/26/22 TEST Routine EEG DIAGNOSIS New onset seizure CONDITION OF RECORDING Awake and drowsy;, patient had frequent eye and head movement leading to movement artifact EEG NUMBER [id number] CLINICAL HISTORY Patient states her doctor increased her Prozac last week, and she has had two seizures since then. EEG DESCRIPTION During the awake state with eyes closed the background consists of 9 Hz posterior dominant rhythm which attenuates appropriately with eye opening. The recording is continuous. There is a well developed anterior-posterior gradient. No significant asymmetries of background activities are noted. With drowsiness there is was waxing and waning of the dominant rhythm with eventual replacement by a mixture of beta, alpha, and theta activity. Patient did not enter stage II sleep. There are no epileptiform discharges or seizures during this recording. Hyperventilation and photic stimulation were not performed. IMPRESSION This is a normal routine EEG recorded in awake and drowsy states. There are no electrographic seizures identified, nor are there any epileptiform discharges. Please note that a normal EEG cannot exclude a seizure disorder. Clinical correlation is recommended.
--- NOTE | 2022-07-27 08:20 | WPDNEUROPN ---
Progress Note: A&P Assessment and Plan (1) New onset seizure: Code(s): R56.9 - Unspecified convulsions Status: Acute (2) History of depression: Code(s): Z86.59 - Personal history of other mental and behavioral disorders Status: Acute Plan Ms. Marquez is a 47 year old female with a history of anxiety and depression presenting with several seizures, that are seemingly unprovoked. MRI brain and routine EEG normal. Likely idiopathic epilepsy. - Continue Keppra 1000mg BID - Discussed seizure precautions and no driving until 6 month seizure free - Will need outpatient follow-up in Neurology clinic in about 3 months - Ok to discharge Subjective Date/time seen: 07/27/22 08:20 Interval history: Sherine Marquez is a 47 year old female h a history of anxiety and depression presenting with new onset seizures. Patient first presented on 07/23 after sustaining a fall down the stairs. Prior to falling she had a spell of lightheadedness. She fell but did not lose consciousness or hit her head. She ended up fracturing her right wrist. She was treated and discharged. On 07/25, patient had a witnessed seizure -- heard a thump and found her with full body jerking, eyes rolled back, unresponsive, lasting several minutes. She was post-ictal afterwards but eventually came back to baseline. She was taken to [place] ED where she had a CT head which was negative. Given first time seizure she was recommended to follow-up as outpatient with EEG and MRI. However this morning patient had another witnessed seizure -- patient was in the bathroom when she fell and had rhythmic jerking of all extremities with labored breathing, lasting a few minutes, and then post-ictal. She was again taken to [place] ED where she received a loading dose of Keppra 4g and started on maintenance Keppra 1000mg BID. Patient has no prior history of seizure. No present signs of illness. UDS positive for opiates. There is a family history of seizures in mother, but provoked by brain tumor. Per , she has had panic attacks in the past that are described as bilateral upper extremity shaking, but she is always alert and able to communicate during them. He emphasized that the panic attacks are very different than the seizures he observed. Patient denies any recent illness or substance use. Routine EEG and MRI brain normal. No seizures since admission. Review of Systems Constitutional: Constitutional: Reports no additional constitutional complaints Eyes: Eyes: Reports no additional eye complaints ENT: Reports system reviewed and no additional complaints, except as documented Cardiovascular: Cardiovascular: Reports no additional cardiovascular complaints Respiratory: Respiratory: Reports no additional respiratory complaints Gastrointestinal: Gastrointestinal: Reports no additional gastrointestinal complaints Genitourinary: Genitourinary: Reports no additional female genitourinary complaints Musculoskeletal: Musculoskeletal: Reports arthralgias Integumentary/Breasts: Skin/Breast: Reports system reviewed and no additional complaints, except as docu Neurologic: Reports as per HPI Psychiatric: Psychiatric: Reports anxiety and Reports depression Exam Const: General: comfortable and no acute distress HENMT: Mouth: Yes moist mucous membranes Eyes: Pupils: Equal, round and reactive pupils present EOM: EOMs intact bilaterally Resp: Effort & Inspection: normal respiratory effort Auscultation: clear to auscultation bilaterally Cardio: Rate: regular rate Rhythm: regular rhythm GI: GI Palp: Yes Soft to palpation Auscultation: normal bowel sounds Skin: General skin exam: normal color Neuro: Other: AOx3, Pupils equal and reactive bilaterally, EOMI, face symmetric, facial sensation intact, tongue protrudes midline, palate midline. RUE strength limited due to pain/cast; LUE and bilateral lower extremity strength is intact and symmetric. S
[2022-07-27] MEDS: FLUTICASONE/SALMETEROL 45-21 MCG INHALER 1 PUFF 2 PUFF INHALATION ×2 (08:35→20:37)
[2022-07-27 08:36] LABS: Basophils Percent Auto 0.3 % (0.2-1.2); Eosinophils Percent Auto 0.1 % (0-4.4); Hematocrit 34.1 % (37.0-47.0); Hemoglobin 11.2 g/dL (12.0-15.0); Immature Granulocyte Absolute 0.13 K/mm3 (0.00-0.031); Immature Granulocyte Percent A 0.9 % (0-0.5); Lymphocytes Absolute Auto 1.85 K/mm3 (0.9-3.2); Lymphocytes Percent Auto 12.9 % (18.3-44.2); Mean Corpuscular HGB Conc 32.8 g/dl (32-36); Mean Corpuscular Hemoglobin 30.8 pg (26-34); Mean Corpuscular Volume 93.7 fl (80-100); Mean Platelet Volume 8.9 fl (7.4-10.4); Monocytes Absolute Auto 1.2 K/mm3 (0.1-0.6); Monocytes Percent Auto 8.6 % (2.6-8.5); Neutrophils Absolute Auto 11.1 K/mm3 (1.3-6.7); Neutrophils Percent Auto 77.2 % (45.5-73.1); Platelet Count Result 294 k/mm3 (150-375); Red Blood Count 3.64 M/mm3 (4.2-5.4); Red Cell Distribution Width 15.8 % (11.5-14.5); White Blood Count 14.4 K/mm3 (4.5-10.0)
[2022-07-27] MEDS: HYDROcodone/acetaminophen (*CRX) 5-325 MG TABLET 1 TAB PO (10:09)
[2022-07-27] MEDS: ALPRAZolam (*CRX) 0.5 MG TABLET 2 MG PO ×3 (10:10→17:40)
[2022-07-27] MEDS: FLUoxetine HCL 20 MG CAPSULE 40 MG PO (10:10)
[2022-07-27] MEDS: QUEtiapine FUMARATE 25 MG TABLET PO ×2 (10:11→17:41)
[2022-07-27] MEDS: levETIRAcetam 1000MG/NACL100ML 1,000 MG/100 ML BAG 400 MG IVPB ×2 (10:11→21:24)
[2022-07-27] MEDS: busPIRone HCL 5 MG TABLET 15 MG PO (10:11)
[2022-07-27] MEDS: BACLOFEN 10 MG TABLET PO ×2 (11:53→21:33)
--- NOTE | 2022-07-27 15:05 | ECG_ITS ---
Measurements Intervals [place] Rate: 122 P: 40 DE: 128 QRS: 49 QRSD: 94 T: 5 QT: 338 QTc: 482 Interpretive Statements SINUS TACHYCARDIA NONSPECIFIC ST & T-WAVE ABNORMALITY- ANT/INF LEADS ABNORMAL ECG COMPARED TO ECG 07/26/2022 07:43:51 SINUS TACHYCARDIA NOW PRESENT Electronically Signed On 07-27-2022 15:32:10 ASSOCIATE PROFESSOR OF ANTHROPOLOGY by Alvaro Ortiz D.O.
--- NOTE | 2022-07-27 17:12 | PM.CNOR ---
Assessment and Plan Assessment and plan (1) Fracture of right distal radius: Qualifiers: Encounter type: initial encounter Fracture type: closed Fracture morphology: Kirill's Qualified Code(s): S52.561A - Roy's fracture of right radius, initial encounter for closed fracture Code(s): S52.501A - Unspecified fracture of the lower end of right radius, initial encounter for closed fracture Status: Acute Assessment and Plan: New patient evaluation status post injury right wrist. The history, physical exam and radiographs reviewed with the patient. Type of fracture discussed in detail. right distal radius fracture. Reduced in the emergency room. Treatment options including operative and non operative treatment reviewed. Risks, benefits and alternatives of each treatment discussed in detail. The patient has declined surgical treatment At this time. Risks of treatment decision discussed in detail. Potential problems with displacement of the fracture, loss of alignment, nonunion, malunion and dysfunction discussed in detail. discussed surgical indications for displacement of fracture. The patient's questions were answered. They verbalized understanding and agreement. Conservative treatment with immobilization, ice, compression and elevation. No surgical treatment planned at this time. Follow up in orthopedic office. History of Present Illness HPI Consult date: 07/27/22 Requesting physician: Matthew John MD Consult reason: fracture Chief complaint: Right wrist fracture Narrative: 47-year-old with seizure disorder who fell on stairs July 23. Sustained right wrist fracture. Reduced in the emergency room and splinted. Patient then subsequently admitted to the hospital for seizure disorder. Was supposed to have orthopedic follow-up this week. I have been asked to see her since she is in the hospital. Complains of pain right wrist with movement. Comfortable at rest. Denies any prior problems with the wrist. Denies numbness or tingling. She is [id number]. Review of Systems Constitutional: Constitutional: Denies fever(s) Eyes: Eyes: Denies blurry vision ENT: Reports Normal hearing present Cardiovascular: Cardiovascular: Denies chest pain and Denies dyspnea Respiratory: Respiratory: Denies dyspnea and Denies wheezing Gastrointestinal: Gastrointestinal: Denies abdominal pain Genitourinary: Genitourinary: Denies urinary urgency Musculoskeletal: Musculoskeletal: Reports as per HPI and Denies numbness Integumentary/Breasts: Skin/Breast: Denies changing lesions and Denies sores Neurologic: Reports Normal hearing present, Denies behavioral changes, Denies confusion, Denies numbness, Reports convulsions and Reports seizure-like activity Psychiatric: Psychiatric: Denies behavioral changes, Denies confusion and Denies hallucinations Endocrine: Endocrine: Denies heat intolerance Hematologic/Lymphatic: Hematologic/Lymphatic: Denies easy bleeding Allergic/Immunologic: Allergic/Immunologic: Denies wheezing [facility], [facility] Past Medical History Medical History (Updated 07/27/22 @ 17:15 by Faizan Roy MD) Anxiety Fracture of right distal radius History of depression Family History Family History Mother Lung cancer Father FH: kidney cancer Social History Social History Smoking packs per day: 0.5 Smoking cigarettes per day: 10.0 Years smoked: 30 Smoking pack-years: 15.00 Smoking status: Current every day smoker Tobacco type: cigarettes Alcohol intake: never Substance use: never Substance use type: does not use Lack of Transportation: No Lack of Food: Never True Current Housing: I Have Housing Concerned About Future Housing: No Difficulty Paying Gas/Electric Bills: No Difficulty Paying for Meds: No Currently Unemployed: No Educat
--- NOTE | 2022-07-27 17:50 | PM.IMPN ---
Progress Note: A&P Assessment and Plan (1) Generalized seizure: Code(s): R56.9 - Unspecified convulsions Status: Acute (2) New onset seizure: Code(s): R56.9 - Unspecified convulsions Status: Acute (3) History of depression: Code(s): Z86.59 - Personal history of other mental and behavioral disorders Status: Acute (4) Anxiety: Code(s): F41.9 - Anxiety disorder, unspecified Status: Acute Plan # recurrent seizures new onset. CT head was negative. Mild leukocytosis lactic acidosis likely related to seizure episode will recheck and monitor no signs of infections not currently. MRI and EEG ordered she is loaded with Keppra by the neurologist. Continue to monitor . Check UDS. CT head earlier today was normal # anxiety disorder/ depressive disorder: Resume her home medication # chest pain: Likely musculoskeletal from fall. EKG with nonspecific ST-T changes. Check troponin. Check chest x-ray # recent right wrist fracture: On the cast. Follow-up with Ortho as planned # DVT prophylaxis SCDs # code status full code 07/27/2022 interval history: patient with new onset seizure MRI and EEG are normal seen by Neurology suspect idiopathic epilepsy recommended to continue Keppra, however patient is quite confused sometimes unable to follow instruction and has urinary incontinence, will continue to monitor have PT OT evaluate further recommendation to follow. Subjective Date/time seen: 07/27/22 17:50 Interval history: Interval history: Sherine Marquez is a 47 year old female h a history of anxiety and depression presenting with new onset seizures. Patient first presented on 07/23 after sustaining a fall down the stairs. Prior to falling she had a spell of lightheadedness. She fell but did not lose consciousness or hit her head. She ended up fracturing her right wrist. She was treated and discharged. On 07/25, patient had a witnessed seizure -- heard a thump and found her with full body jerking, eyes rolled back, unresponsive, lasting several minutes. She was post-ictal afterwards but eventually came back to baseline. She was taken to [place] ED where she had a CT head which was negative. Given first time seizure she was recommended to follow-up as outpatient with EEG and MRI. However this morning patient had another witnessed seizure -- patient was in the bathroom when she fell and had rhythmic jerking of all extremities with labored breathing, lasting a few minutes, and then post-ictal. She was again taken to [place] ED where she received a loading dose of Keppra 4g and started on maintenance Keppra 1000mg BID. Patient has no prior history of seizure. No present signs of illness. UDS positive for opiates. There is a family history of seizures in mother, but provoked by brain tumor. Per , she has had panic attacks in the past that are described as bilateral upper extremity shaking, but she is always alert and able to communicate during them. He emphasized that the panic attacks are very different than the seizures he observed. Patient denies any recent illness or substance use. Routine EEG and MRI brain normal. No seizures since admission. 07/27/2022 interval history: patient with new onset seizure MRI and EEG are normal seen by Neurology suspect idiopathic epilepsy recommended to continue Keppra, however patient is quite confused sometimes unable to follow instruction and has urinary incontinence, will continue to monitor have PT OT evaluate further recommendation to follow. Review of Systems Review of Systems: ROS unobtainable: Yes unobtainable due to medical condition Exam Narrative: morbidly obese Patient is comfortable, NAD HEENT: eyes are clear and none icteric LUNGS: normal respiratory effort ABD: distended Lower extremities: no edema SKIN: nonjaundiced Neuro: grossly intact. Objective Data Vital Signs Vital Signs: Vital Signs - 24 hr 07/26/22 21:04
[2022-07-27] MEDS: METOPROLOL TARTRATE 12.5 MG TABLET PO (21:27)
[2022-07-27] MEDS: QUEtiapine FUMARATE 100 MG TABLET PO (21:28)
[2022-07-28] VITALS (15 sets, daily range): BP systolic 127–160; BP diastolic 84–105; PULSE 110–124; RESP 24–38; TEMP 36.4–37.6; O2SAT 93–95
[2022-07-28] MEDS: BACLOFEN 10 MG TABLET PO ×3 (06:46→21:27)
[2022-07-28] MEDS: ALPRAZolam (*CRX) 0.5 MG TABLET 2 MG PO ×3 (09:40→17:04)
[2022-07-28] MEDS: QUEtiapine FUMARATE 25 MG TABLET PO (09:40)
[2022-07-28] MEDS: METOPROLOL TARTRATE 12.5 MG TABLET PO ×2 (09:40→15:48)
[2022-07-28] MEDS: busPIRone HCL 5 MG TABLET 15 MG PO (09:40)
[2022-07-28] MEDS: FLUoxetine HCL 20 MG CAPSULE 40 MG PO (09:40)
[2022-07-28] MEDS: levETIRAcetam 1000MG/NACL100ML 1,000 MG/100 ML BAG 400 MG IVPB ×2 (09:41→21:23)
--- NOTE | 2022-07-28 11:29 | PM.IMPN ---
Progress Note: A&P Assessment and Plan (1) Generalized seizure: Code(s): R56.9 - Unspecified convulsions Status: Acute (2) New onset seizure: Code(s): R56.9 - Unspecified convulsions Status: Acute (3) History of depression: Code(s): Z86.59 - Personal history of other mental and behavioral disorders Status: Acute (4) Anxiety: Code(s): F41.9 - Anxiety disorder, unspecified Status: Acute Plan # recurrent seizures new onset. CT head was negative. Mild leukocytosis lactic acidosis likely related to seizure episode will recheck and monitor no signs of infections not currently. MRI and EEG ordered she is loaded with Keppra by the neurologist. Continue to monitor . Check UDS. CT head earlier today was normal # anxiety disorder/ depressive disorder: Resume her home medication # chest pain: Likely musculoskeletal from fall. EKG with nonspecific ST-T changes. Check troponin. Check chest x-ray # recent right wrist fracture: On the cast. Follow-up with Ortho as planned # DVT prophylaxis SCDs # code status full code 07/28/2022 interval history: patient with new onset seizure MRI and EEG are normal seen by Neurology suspect idiopathic epilepsy recommended to continue Keppra, however patient was quite confused sometimes unable to follow instruction and had urinary incontinence, today patient is sitting side of the bed, stats feeling better, will continue to monitor have PT OT evaluate further recommendation to follow. possibly discharge patient tomorrow. Subjective Date/time seen: 07/28/22 11:29 Interval history: Interval history: Sherine Marquez is a 47 year old female h a history of anxiety and depression presenting with new onset seizures. Patient first presented on 07/23 after sustaining a fall down the stairs. Prior to falling she had a spell of lightheadedness. She fell but did not lose consciousness or hit her head. She ended up fracturing her right wrist. She was treated and discharged. On 07/25, patient had a witnessed seizure -- heard a thump and found her with full body jerking, eyes rolled back, unresponsive, lasting several minutes. She was post-ictal afterwards but eventually came back to baseline. She was taken to [place] where she had a CT head which was negative. Given first time seizure she was recommended to follow-up as outpatient with EEG and MRI. However this morning patient had another witnessed seizure -- patient was in the bathroom when she fell and had rhythmic jerking of all extremities with labored breathing, lasting a few minutes, and then post-ictal. She was again taken to [place] where she received a loading dose of Keppra 4g and started on maintenance Keppra 1000mg BID. Patient has no prior history of seizure. No present signs of illness. UDS positive for opiates. There is a family history of seizures in mother, but provoked by brain tumor. Per , she has had panic attacks in the past that are described as bilateral upper extremity shaking, but she is always alert and able to communicate during them. He emphasized that the panic attacks are very different than the seizures he observed. Patient denies any recent illness or substance use. Routine EEG and MRI brain normal. No seizures since admission. 07/28/2022 interval history: patient with new onset seizure MRI and EEG are normal seen by Neurology suspect idiopathic epilepsy recommended to continue Keppra, however patient was quite confused sometimes unable to follow instruction and had urinary incontinence, today patient is sitting side of the bed, stats feeling better, will continue to monitor have PT OT evaluate further recommendation to follow. possibly discharge patient tomorrow. Exam Narrative: morbidly obese Patient is comfortable, NAD HEENT: eyes are clear and none icteric LUNGS: normal respiratory effort ABD: distended Lower extremities: no edema SKIN: nonjaundiced Neuro:
--- NOTE | 2022-07-28 14:30 | PC.NURSE ---
this rn notified charge gang weigher of pt's elevated bp, pulse, and respirations. Cinthya rn assessed and called Dr about pt's condition.
--- NOTE | 2022-07-28 14:33 | PCRCNOTE ---
Window of time for administration has passed. See next scheduled administration.
[2022-07-28] MEDS: IPRATROPIUM BR 0.02% INH SOLN 0.5 MG/2.5 ML VIAL INHALATION (16:23)
[2022-07-28] MEDS: LEVALBUTEROL NEB 1.25 MG/3 ML 0.63 MG INHALATION (16:23)
[2022-07-28] MEDS: BUDESONIDE RESPULE NEB 0.5 MG/2 ML AMP INHALATION (16:25)
--- NOTE | 2022-07-28 17:03 | PC.NURSE ---
Discussed Seroquel order with Dr. John. patient had been lethargic earlier, patient awake and oriented at this time. Dr. John stated not to give one time dose of Seroquel.
[2022-07-28] MEDS: FLUTICASONE PROPIONATE 0.05% NA SPR 16 GM BTL (*BKC) 1 SPRAY NASAL (21:24)
[2022-07-28] MEDS: METOPROLOL TARTRATE 25 MG TABLET PO (21:26)
[2022-07-28] MEDS: QUEtiapine FUMARATE 25 MG TABLET 50 MG PO (21:27)
[2022-07-28] MEDS: QUEtiapine FUMARATE 100 MG TABLET PO (21:28)
[2022-07-29 02:40] VITALS: PULSE 110; RESP 20; RESP 22; O2SAT 98
[2022-07-29] MEDS: LEVALBUTEROL NEB 1.25 MG/3 ML 0.63 MG INHALATION ×2 (02:46→10:14)
[2022-07-29] MEDS: IPRATROPIUM BR 0.02% INH SOLN 0.5 MG/2.5 ML VIAL INHALATION ×2 (02:46→10:14)
[2022-07-29 02:52] VITALS: PULSE 111; RESP 22
[2022-07-29 05:50] LABS: Hematocrit 35.4 % (37.0-47.0); Hemoglobin 11.4 g/dL (12.0-15.0); Mean Corpuscular HGB Conc 32.2 g/dl (32-36); Mean Corpuscular Hemoglobin 30.6 pg (26-34); Mean Corpuscular Volume 95.2 fl (80-100); Mean Platelet Volume 9.1 fl (7.4-10.4); Platelet Count Result 259 k/mm3 (150-375); Red Blood Count 3.72 M/mm3 (4.2-5.4); Red Cell Distribution Width 15.3 % (11.5-14.5); White Blood Count 15.6 K/mm3 (4.5-10.0)
[2022-07-29] MEDS: BACLOFEN 10 MG TABLET PO (05:52)
[2022-07-29 06:00] VITALS: BP 146/96; PULSE 109; RESP 24; TEMP 36.1; O2SAT 94
[2022-07-29 06:17] LABS: Anion Gap 7 mmol/L (8-16); Blood Urea Nitrogen 8 mg/dL (7-17); Calcium 8.4 mg/dL (8.4-10.2); Carbon Dioxide 25 mmol/L (22-30); Chloride 100 mmol/L (98-107); Estimated CRCL calculation 114 ml/min; Estimated Glomerular Filt Rate > 60; Glucose 100 mg/dL (65-110); Potassium 4.1 mmol/L (3.4-5.0); Sodium 132 mmol/L (137-145)
[2022-07-29 08:00] VITALS: PULSE 99; RESP 22; O2SAT 94
[2022-07-29] MEDS: FLUoxetine HCL 20 MG CAPSULE 40 MG PO (09:22)
[2022-07-29] MEDS: QUEtiapine FUMARATE 25 MG TABLET 50 MG PO (09:22)
[2022-07-29] MEDS: METOPROLOL TARTRATE 25 MG TABLET PO (09:23)
[2022-07-29] MEDS: LORATADINE 10 MG TABLET PO (09:23)
[2022-07-29] MEDS: busPIRone HCL 5 MG TABLET 15 MG PO (09:23)
[2022-07-29] MEDS: FLUTICASONE PROPIONATE 0.05% NA SPR 16 GM BTL (*BKC) 1 SPRAY NASAL (09:24)
[2022-07-29] MEDS: levETIRAcetam 1000MG/NACL100ML 1,000 MG/100 ML BAG 400 MG IVPB (09:27)
[2022-07-29] MEDS: ALPRAZolam (*CRX) 0.5 MG TABLET 2 MG PO (09:27)
[2022-07-29] MEDS: BUDESONIDE RESPULE NEB 0.5 MG/2 ML AMP INHALATION (10:14)
[2022-07-29 10:18] VITALS: PULSE 103; RESP 22
--- NOTE | 2022-07-29 10:18 | PM.DS ---
DS: Admitting Diagnosis Discharge Date 07/29/2022 Admitting Diagnosis seizure DS: Discharge Diagnosis Discharge Diagnosis (1) Generalized seizure: Code(s): R56.9 - Unspecified convulsions Status: Acute (2) New onset seizure: Code(s): R56.9 - Unspecified convulsions Status: Acute (3) History of depression: Code(s): Z86.59 - Personal history of other mental and behavioral disorders Status: Acute (4) Anxiety: Code(s): F41.9 - Anxiety disorder, unspecified Status: Acute Plan # recurrent seizures new onset. CT head was negative. Mild leukocytosis lactic acidosis likely related to seizure episode will recheck and monitor no signs of infections not currently. MRI and EEG ordered she is loaded with Keppra by the neurologist. Continue to monitor . Check UDS. CT head earlier today was normal # anxiety disorder/ depressive disorder: Resume her home medication # chest pain: Likely musculoskeletal from fall. EKG with nonspecific ST-T changes. Check troponin. Check chest x-ray # recent right wrist fracture: On the cast. Follow-up with Ortho as planned # DVT prophylaxis SCDs # code status full code 07/28/2022 interval history: patient with new onset seizure MRI and EEG are normal seen by Neurology suspect idiopathic epilepsy recommended to continue Keppra, however patient was quite confused sometimes unable to follow instruction and had urinary incontinence, today patient is sitting side of the bed, stats feeling better, will continue to monitor have PT OT evaluate further recommendation to follow. possibly discharge patient tomorrow. DS: Summary Hospital Course Reason for hospitalization: ?seizure Narrative: ?the patient is a 47-year-old female with past medical history of anxiety and depression presents with seizure like activity.? She presented last night with similar episode where the family heard a thump with the fall and when her went there see was having rhythmic jerking of her arms and legs with clenching of? her teeth and had a stare look.? Does episode lasted about few minutes and she seemed tired and confused after that.? She does not have history of seizure in the past.? She was sent back home after her CT head was done which came back normal.? She had another episode again this morning similar in character this time she had tongue bite.? She was brought to the ED and is admitted for further evaluation.? Lactic acid was elevated with these episodes.? She denies any recent fever chills no headaches or neck pain. Hospital Course: # recurrent seizures new onset.? CT head was negative.? Mild leukocytosis lactic acidosis likely related to seizure episode will recheck and monitor no signs of infections not currently.? MRI and EEG ordered she is loaded with Keppra by the neurologist.? Continue to monitor .? Check UDS.? CT head earlier today was normal # anxiety disorder/ depressive disorder: Resume her home medication # chest pain:? Likely musculoskeletal from fall.? EKG with nonspecific ST-T changes.? Check troponin.? Check chest x-ray # recent right wrist fracture:? On the cast.? Follow-up with Ortho as planned # DVT prophylaxis? SCDs # code status full code ?patient with new onset seizure MRI and EEG are normal seen by Neurology suspect idiopathic epilepsy recommended to continue Keppra, however patient was quite confused sometimes unable to follow instruction and had urinary incontinence, today patient is sitting side of the bed, stats feeling better, will continue to monitor have PT OT evaluate further recommendation to follow. possibly discharge patient tomorrow. Patient is present in the room and discussed, comfortable taking the patient home, will follow up with her psychiatrist, primary care and neurologist, Her is instructed if any symptoms worsen to go to nearest ER. Time Spent with Patient Time attestation: Total time spent providing and/or coordinating
[2022-07-29 10:30] VITALS: PULSE 99; RESP 22
--- NOTE | 2022-07-29 10:53 | PCOTNOTE ---
Entered room to answer bed alarm. assisted patient to bedside commode. Upon entering patient appeared very drowsy with poor sitting balance. placed patient's arm on his shoulder, and encouraged her to stand. Educated on use of gait belt, however declined and assisted patient back to bed. Patient declined bathing and dressing at this time stating, I'm going home. confirms patient is discharging, reporting he would help her get dressed prior to leaving. It will be a lot when we get home, but she will be fine once she wakes up. My son will be there. If she's too tired to get upstairs, she can sit in her chair. Pt and have no concerns as pertains to OT at this time.
--- NOTE | 2022-07-29 18:25 | PC.NURSE ---
spouse Devante called to say he was unable to get nebulizer machine. He tried [facility] and they were out. Eleonora requires a script and he also tried [facility] who required a script. Dr. John notified and asked if I could call the pharmacy and order nebulizer machine for her. Talked with [facility] and she states that they do not have any in stock.
--- NOTE | 2022-07-29 18:44 | PC.NURSE ---
Family notified that [facility] in [place] did not have a machine in stock and asked what other pharmacies I could try for them. They asked for [facility] in [place] or [place]. [place] [facility] notified and they stated that [facility] in [place] might have one. [facility] in [place] notified and they state that at this time they do have one machine in stock. (Devante) notified and he states that he will go now and poultry picker the machine.
== END 2022-07-29 11:45 | disposition home or self-care (01) ==
LOC: ANHED 07:24 → ANH3MEDSUR 12:52
PROVIDERS: Student in an Organized Health Care Education/Training Program; Admitting Provider Internal Medicine; Emergency Provider Emergency Medicine; PCP Family Medicine; Visit Provider Family Medicine
DX: R56.9 Unspecified convulsions (principal); F41.9 Anxiety disorder, unspecified; F32.A Depression, unspecified; D72.829 Elevated white blood cell count, unspecified; R53.83 Other fatigue; R53.1 Weakness; F41.0 Panic disorder [episodic paroxysmal anxiety]; S52.561A Barton's fracture of right radius, initial encounter for closed fracture; W19.XXXA Unspecified fall, initial encounter; R00.0 Tachycardia, unspecified; R41.0 Disorientation, unspecified; N39.41 Urge incontinence; E66.01 Morbid (severe) obesity due to excess calories; Z68.36 Body mass index [BMI] 36.0-36.9, adult; I45.10 Unspecified right bundle-branch block; R74.02 Elevation of levels of lactic acid dehydrogenase [LDH]; R94.31 Abnormal electrocardiogram [ECG] [EKG]; Z20.822 Contact with and (suspected) exposure to COVID-19; F17.210 Nicotine dependence, cigarettes, uncomplicated; Z79.891 Long term (current) use of opiate analgesic; Z79.899 Other long term (current) drug therapy
CPT/HCPCS: 36415; 70551; 71045; 80048; 80053; 80307; 81001; 83605; 83735; 84484; 85025; 85027; 87637; 93005; 94640; 95816; 96365; 96374; 96376; 97162; 97165; 99285; A9270; G0378; J1953; J7120

== ENCOUNTER 2022-09-15 16:50 | Outpatient (CLI) | payer OTHER, SELFPAY ==
--- NOTE | ~2022-09-15 | DEXA_ITS ---
Bone Density Report Name: PAUL WEBB Age: 47 Sex: Female Ethnicity: White Date of : 1975 Indication: postmenopausal; seizure disorder; Referring Provider: ELADIO NEAL Study: Bone densitometry was performed. Exam Date: September 15, 2022 Accession number: [id number] Bone Density: Region BMD T-score Z-score Classification AP Spine(L1-L4) 0.820 -2.1 -1.6 Osteopenia Femoral Neck (Left) 0.622 -2.0 -1.6 Osteopenia Total Hip (Left) 0.695 -2.0 -1.7 Osteopenia Femoral Neck (Right) 0.593 -2.3 -1.9 Osteopenia Total Hip (Right) 0.749 -1.6 -1.3 Osteopenia Total Hip Mean 0.722 -1.8 -1.5 Osteopenia World Health Organization criteria for BMD impression classify patients as: Normal (T-score at or above -1.0), Osteopenia (T-score between -1.0 and -2.5), or Osteoporosis (T-score at or below -2.5). 10-year Fracture Risk(1): Major Osteoporotic Fracture 4.2% Hip Fracture 1.2% Reported Risk Factors: [place] (), Neck BMD=0.593, BMI=35.4, smoking (1) FRAX(R) Version 3.08. Fracture probability calculated for an untreated patient. Fracture probability may be lower if the patient has received treatment. Clinical Information Provided by Patient: Smokes Has used the following medications: HRT (i.e. estrogen/hormone therapy), Vitamin D, Calcium Has the following medical conditions: Any Seizure Disorders Patient maximum height was 64 Menopause Age: 44 No regular weight bearing exercise Drinks caffeinated beverages Onset of menses at age 14 Number of children 2 Impression: The patient has low bone mass, based on the Right Femoral Neck T-score. The patient has an estimated ten-year risk of hip fracture of 1.2% and an estimated ten-year risk of major fracture of 4.2%, based on the WHO FRAX algorithm. The patient has risk factors, including: smoking. Discussion: BONE DENSITY IS LOW AT ONE OR MORE SKELETAL SITES. This patient's lowest T-score is low at one or more skeletal sites. It meets the World Health Organization's (WHO) criteria for ?low bone mass? (T-score between -1.0 and -2.5). The patient's 10-year risk of fracture as calculated by FRAX is less than the threshold where pharmacological therapy is recommended by the National Osteoporosis Foundation (NOF). However, all treatment decisions require clinical judgment and consideration of individual patient factors, including patient preferences, comorbidities, previous drug use, risk factors not captured in the FRAX model (e.g., frailty, falls, vitamin D deficiency, increased bone turnover, interval significant decline in bone density) and possible under or overestimation of fracture risk by FRAX. The patient should follow a healthful lifestyle (good nutrition with adequate calcium and vitamin D, and appropriate weight-bearing exercise).
== END 2022-09-15 16:51 | disposition home or self-care (01) ==
PROVIDERS: PCP Family Medicine; Visit Provider Orthopaedic Surgery
DX: M81.0 Age-related osteoporosis without current pathological fracture (principal)
CPT/HCPCS: 77080